=== PATIENT | male | born 1945 | race Caucasian/White ===

== ENCOUNTER 2017-11-12 18:16 | Inpatient (IN) | payer MEDICARE ==
[~2017-11-12] VITALS: Ht 172.7 cm; Wt 99.3 kg
[2017-11-12] MEDS ORDERED: SODIUM CHLORIDE 0.9% 1000ML 1,000 ML IV STA ×2 (18:23→19:36)
[2017-11-12] MEDS ORDERED: ONDANSETRON HCL 4 MG ORAL DISINTEGRATING TAB PO ONE (18:30)
[2017-11-12] MEDS ORDERED: DIATRIZOATE MEGL/DIATRIZOA SOD 30 ML BTL PO ONE (18:30)
[2017-11-12] MEDS: SODIUM CHLORIDE 0.9% 1000ML 1,000 ML IV SCH (20:45)
--- NOTE | 2017-11-12 21:52 | Diagnostic Imaging Report ---
EXAMINATION: CHEST SINGLE (PORTABLE) INDICATION: Abdominal pain, rectal bleeding, evaluate for diverticulitis COMPARISON: None FINDINGS: TUBES and LINES: None. LUNGS: Lungs are not well inflated. Lungs are clear. There is no evidence of pneumonia or pulmonary edema. PLEURA: No pleural effusion or pneumothorax. HEART AND MEDIASTINUM: The cardiomediastinal silhouette is unremarkable. BONES AND SOFT TISSUES: No acute osseous lesion. Soft tissues are unremarkable. UPPER ABDOMEN: No free air under the diaphragm. IMPRESSION: 1. No acute thoracic abnormality. 2. No evidence of free intraperitoneal air. Signed by: Dr. Sean Gongora M.D. on 11/12/2017 9:49 PM
--- NOTE | 2017-11-12 22:00 | Diagnostic Imaging Report ---
EXAM: CT Abdomen and Pelvis WITHOUT contrast INDICATION: Perforated diverticulitis COMPARISON: None. TECHNIQUE: Abdomen and pelvis were scanned utilizing a multidetector helical scanner from the lung base to the pubic symphysis without administration of IV contrast. Absence of intravenous contrast decreases sensitivity for detection of focal lesions and vascular pathology. Coronal and sagittal reformations were obtained. Routine protocol was performed. IV CONTRAST: None. ORAL CONTRAST: Gastrografin RADIATION DOSE: Total DLP: 807.46 mGy*cm Estimated effective dose: (DLP x 0.015 x size factor) mSv COMPLICATIONS: None FINDINGS: LINES and TUBES: None. LOWER THORAX: Moderate cardiomegaly. HEPATOBILIARY: No focal hepatic lesions. No biliary ductal dilation. GALLBLADDER: No radio-opaque stones or sludge. No wall thickening. SPLEEN: No splenomegaly. PANCREAS: No focal masses or ductal dilatation. ADRENALS: No adrenal nodules KIDNEYS/URETERS: No hydronephrosis. No cystic or solid mass lesions. No stones. GI TRACT: Focal, medial, cecal wall thickening with pericolic fat stranding best seen on series 2, image 51 and series 301, image 69, coronal view is suggestive of inflammatory process. These focal diverticulitis is just above the origin of the appendix. There are innumerable diverticula throughout the colon. Appendix is normal. PELVIC ORGANS/BLADDER: Unremarkable. LYMPH NODES: No lymphadenopathy. VESSELS: There is moderate atherosclerotic disease in the aorta and major arterial branches. PERITONEUM / RETROPERITONEUM: No free air or fluid. BONES: There are degenerative changes in the lumbar spine. Bilateral pars defect at L5 with grade 1 anterolisthesis of L5 on S1. SOFT TISSUES: Unremarkable. IMPRESSION: 1. Findings in the cecum are compatible with cecal diverticulitis without free intraperitoneal air. 2. Diffuse diverticulosis of the colon. 3. Mild to moderate enlargement of the heart without evidence of decompensation. Signed by: Dr. Sean Gongora M.D. on 11/12/2017 9:56 PM
[2017-11-12] MEDS ORDERED: LEVOFLOXACIN 500MG/D5W 100ML 100 ML IV STA (23:58)
[2017-11-12] MEDS ORDERED: METRONIDAZOLE 500MG/NS 100ML 100 ML IV STA (23:58)
[2017-11-13 00:59] LABS: HEMATOCRIT 30.7 % (38.2-49.6); HEMOGLOBIN 10.7 g/dL (14.0-18.0)
[2017-11-13] MEDS ORDERED: AMLODIPINE BESY10 MG PO (00:59)
[2017-11-13] MEDS ORDERED: ATORVASTATIN CA20 MG PO (00:59)
[2017-11-13] MEDS ORDERED: ASPIR 8181 MG PO (01:00)
[2017-11-13] MEDS ORDERED: GABAPENTIN300 MG PO (01:00)
[2017-11-13] MEDS ORDERED: FINASTERIDE5 MG PO (01:00)
[2017-11-13] MEDS ORDERED: LISINOPRIL-HCT1 EAC1 PO (01:01)
[2017-11-13] MEDS ORDERED: TAMSULOSIN HCL0.4 MG PO (01:02)
--- OUTSIDE RECORDS SUMMARY | 2017-11-13 01:51 | XMS REPORT ---
Author [facility] Address Unknown Phone Unavailable Care Team Providers Care Paper Cutting Machine Operator Name Role Phone SHOAIB TANG Unavailable Unavailable Problems This patient has no known problems. Allergies, Adverse Reactions, Alerts This patient has no known allergies or adverse reactions. Medications This patient has no known medications. Results Test Description Test Time Test Comments Text Results Atomic Results Result Comments CT ABDOMEN/PELVIS WO 2017-11-12 21:50:[address] [address] Patient Name: JANESSA SUTTON III MR #: [id number] : 1945 Age/Sex: 72/M Req #: [id number] Adm Physician: Ordered by: DAVID LOVING ADDICTION PROFESSIONAL Report #: [id number] Location: ER Room/Bed: ___ Procedure: CT/CT ABDOMEN/PELVIS WO Exam Date: 11/12/17 Exam Time: 2104 REPORT STATUS: Signed EXAM: CT Abdomen and Pelvis WITHOUT contrast INDICATION: Perforated diverticulitis COMPARISON: None. TECHNIQUE: Abdomen and pelvis were scanned utilizing a multidetector helical scanner from the lung base to the pubic symphysis without administration of IV contrast. Absence of intravenous contrast decreases sensitivity for detection of focal lesions and vascular pathology. Coronal and sagittal reformations were obtained. Routine protocol was performed. IV CONTRAST: None. ORAL CONTRAST: Gastrografin RADIATION DOSE: Total DLP: 807.46 mGy*cm Estimated effective dose: (DLP x 0.015 x size factor) mSv COMPLICATIONS: None FINDINGS: LINES and TUBES: None. LOWER THORAX : Moderate cardiomegaly. HEPATOBILIARY: No focal hepatic lesions. No biliary ductal dilation. GALLBLADDER: No radio-opaque stones or sludge. No wall thickening. SPLEEN: No splenomegaly. PANCREAS: No focal masses or ductal dilatation. ADRENALS: No adrenal nodules KIDNEYS/URETERS: No hydronephrosis. No cystic or solid mass lesions. No stones. GI TRACT: Focal, medial, cecal wall thickening with pericolic fat stranding best seen on series 2, image 51 and series 301, image 69, coronal view is suggestive of inflammatory process. These focal diverticulitis is just above the origin of the appendix. There are innumerable diverticula throughout the colon. Appendix is normal. PELVIC ORGANS/BLADDER: Unremarkable. LYMPH NODES: No lymphadenopathy. VESSELS: There is moderate atherosclerotic disease in the aorta and major arterial branches. PERITONEUM / RETROPERITONEUM: No free air or fluid. BONES: There are degenerative changes in the lumbar spine. Bilateral pars defect at L5 with grade 1 anterolisthesis of L5 on S1. SOFT TISSUES: Unremarkable. IMPRESSION: 1. Findings in the cecum are compatible with cecal diverticulitis without free intraperitoneal air. 2. Diffuse diverticulosis of the colon. 3. Mild to moderate enlargement of the heart without evidence of decompensation. Signed by: Dr. Sean Gongora M.D. on 11/12/2017 9:56 PM Dictated By: SEAN IRIZARRY MD 55 Transcribed By: DARRYN on 11/12/172155 COPY TO: DAVID LOVING NP CHEST SINGLE (PORTABLE) 2017-11-12 21:48:00 [place] [address] Patient Name: JANESSA SUTTON III MR #: [id number] : 1945 Age/Sex: 72 /M Req #: [id number] Adm Physician: Ordered by: DAVID LOVING NP Report #: [id number] Location: ER Room/Bed: Procedure: [id number] DX/CHEST SINGLE (PORTABLE) Exam Date: 11/12/17 Exam Time: 2099 REPORT STATUS: Signed EXAMINATION: CHEST SINGLE (PORTABLE) INDICATION: Abdominal pain, rectal bleeding, evaluate for diverticulitis COMPARISON: None FINDINGS: TUBES and LINES: None. LUNGS: Lungs are not well inflated. Lungs are clear. There is no evidence of pneumonia or pulmonary edema. PLEURA: No pleural effusion or pneumothorax. HEART AND MEDIASTINUM: The cardiomediastinal silhouette is unremarkable. BONES AND SOFT TISSUES: No acute osseous lesion. Soft tissues are unremarkable. UPPER ABDOMEN: No free air under the diaphragm. IMPRESSION: 1. No acute thoracic abnormality. 2. No evidence of free intraperitoneal air. Signed by: Dr. Sean Gongora M.D. on 11/12/2017 9:49 PM Dictated By: SEAN IRIZARRY MD 48 COPY TO: DAVID LOVING NP
[2017-11-13 01:55] LABS: BILIRUBIN,URINE NEGATIVE (NEGATIVE); COLOR,URINE YELLOW (YELLOW); KETONES,URINE NEGATIVE (NEGATIVE); LEUKOCYTE ESTERASE ,URINE NEGATIVE (NEGATIVE); NITRITE,URINE NEGATIVE (NEGATIVE); PROTEIN,URINE DIPSTICK NEGATIVE (NEGATIVE); URINE UROBILINOGEN 0.2 mg/dL (0.2 - 1)
[2017-11-13 01:56] LABS: CALCIUM OXALATE CRYSTALS,UR FEW (FEW); EPITHELIAL CELLS,URINE FEW /LPF; WBC,URINE (MAN) 0-5 /HPF (0-5)
[2017-11-13 01:57] LABS: BACTERIA,URINE RARE /HPF; CLARITY,URINE HAZY (CLEAR)
[2017-11-13] MEDS: SODIUM CHLORIDE 0.9% 1000ML 1,000 ML IV SCH ×4 (02:15→22:01)
[2017-11-13] MEDS ORDERED: METRONIDAZOLE 500MG/NS 100ML 100 ML IV SCH (06:00)
[2017-11-13 07:08] LABS: BASOPHILS % 0.3 % (0.0-1.0); EOSINOPHILS # (AUTO) 0.1 (0.0-0.4); EOSINOPHILS % 1.2 % (0.0-6.0); HEMATOCRIT 28.4 % (38.2-49.6); HEMOGLOBIN 9.8 g/dL (14.0-18.0); LYMPHOCYTES # (AUTO) 1.4 (1.0-3.2); LYMPHOCYTES % 13.3 % (18.0-39.1); MEAN CORPUSCULAR HEMOGLOBIN 31.2 pg (28-32); MEAN CORPUSCULAR HGB CONC 324.5 g/dL (31-35); MEAN CORPUSCULAR VOLUME 90.4 fL (81-99); MONOCYTES # (AUTO) 0.9 (0.2-0.8); MONOCYTES % 8.3 % (4.4-11.3); NEUTROPHILS # (AUTO) 7.8 (2.1-6.9); NEUTROPHILS % 75.7 % (38.7-80.0); PLATELET COUNT 122 x10e3/uL (140-360); RED BLOOD COUNT 3.14 x10e6/uL (4.3-5.7); RED CELL DISTRIBUTION WIDTH 14.3 % (11.7-14.4)
[2017-11-13 09:11] LABS: BASOPHILS # (AUTO) 0.1 (0.0-0.1); BASOPHILS % 0.4 % (0.0-1.0); EOSINOPHILS # (AUTO) 0.2 (0.0-0.4); EOSINOPHILS % 1.2 % (0.0-6.0); HEMATOCRIT 35.6 % (38.2-49.6); INR 1.3; LYMPHOCYTES # (AUTO) 1.5 (1.0-3.2); MEAN CORPUSCULAR HEMOGLOBIN 31.4 pg (28-32); MEAN CORPUSCULAR HGB CONC 33.7 g/dL (31-35); MEAN CORPUSCULAR VOLUME 93.2 fL (81-99); MONOCYTES # (AUTO) 0.9 (0.2-0.8); MONOCYTES % 7.4 % (4.4-11.3); NEUTROPHILS # (AUTO) 9.6 (2.1-6.9); NEUTROPHILS % 77.9 % (38.7-80.0); PARTIAL THROMBOPLASTIN TIME 33.4 seconds (23.8-35.5); PLATELET COUNT 178 x10e3/uL (140-360); PROTHROMBIN TIME 15.2 seconds (11.9-14.5); RED BLOOD COUNT 3.82 x10e6/uL (4.3-5.7); RED CELL DISTRIBUTION WIDTH 14.4 % (11.7-14.4)
[2017-11-13 09:12] LABS: ANION GAP 14.9 mmol/L (8-16); CALCIUM 9.5 mg/dL (8.4-10.2); CREATININE, SERUM 2.14 mg/dL (0.72-1.25); POTASSIUM 3.9 mmol/L (3.5-5.1)
[2017-11-13 09:13] LABS: ALBUMIN 3.4 g/dL (3.5-5.0); ALBUMIN/GLOBULIN RATIO 1.2 (0.8-2.0)
[2017-11-13] MEDS ORDERED: PHYTONADIONE 10 MG/ML AMP SQ ONE (11:45)
[2017-11-13] MEDS ORDERED: SODIUM CHLORIDE 0.9% 250ML 250 ML IV ONE (14:30)
[2017-11-13] MEDS ORDERED: FUROSEMIDE INJ 10 MG/ML 2 ML VIAL IV PRN (14:30)
[2017-11-13 15:24] LABS: HEMATOCRIT 29.1 % (38.2-49.6); HEMOGLOBIN 10.1 g/dL (14.0-18.0)
[2017-11-13] MEDS: GABAPENTIN 300 MG CAP PO SCH ×2 (15:25→22:01)
[2017-11-13] MEDS ORDERED: ACETAMINOPHEN 325 MG TAB PO SCH (15:30)
[2017-11-13 15:58] VITALS: BP 137/66
[2017-11-13] MEDS: METRONIDAZOLE 500MG/NS 100ML 100 ML IV SCH ×2 (18:00→22:01)
[2017-11-13 19:30] VITALS: BP 135/71
[2017-11-13 20:00] VITALS: BP 135/71
[2017-11-13] MEDS ORDERED: SODIUM CHLORIDE 0.9% 250ML 250 ML ONE (20:16)
[2017-11-13 21:07] LABS: HEMATOCRIT 29.5 % (38.2-49.6); HEMOGLOBIN 10.2 g/dL (14.0-18.0)
[2017-11-13] MEDS: LEVOFLOXACIN 500MG/D5W 100ML 100 ML IV SCH (23:06)
[2017-11-13 23:53] VITALS: BP 130/63
[2017-11-14] VITALS (13 sets, daily range): BP systolic 98–157; BP diastolic 58–107
[2017-11-14] MEDS ORDERED: PEG (High)/E-LYTE SOLN 4,000 ML BTL PO ONE (00:30)
[2017-11-14 00:49] LABS: BASOPHILS % 0.3 % (0.0-1.0); EOSINOPHILS # (AUTO) 0.2 (0.0-0.4); EOSINOPHILS % 1.7 % (0.0-6.0); HEMATOCRIT 28.7 % (38.2-49.6); HEMOGLOBIN 10.1 g/dL (14.0-18.0); LYMPHOCYTES # (AUTO) 1.1 (1.0-3.2); LYMPHOCYTES % 12.6 % (18.0-39.1); MEAN CORPUSCULAR HEMOGLOBIN 31.5 pg (28-32); MEAN CORPUSCULAR HGB CONC 35.2 g/dL (31-35); MEAN CORPUSCULAR VOLUME 89.4 fL (81-99); MONOCYTES # (AUTO) 0.8 (0.2-0.8); MONOCYTES % 8.6 % (4.4-11.3); NEUTROPHILS # (AUTO) 6.7 (2.1-6.9); PLATELET COUNT 133 x10e3/uL (140-360); RED BLOOD COUNT 3.21 x10e6/uL (4.3-5.7); RED CELL DISTRIBUTION WIDTH 14.2 % (11.7-14.4)
[2017-11-14] MEDS ORDERED: ZOLPIDEM TARTRATE 5 MG TAB PO ONE (04:00)
[2017-11-14 04:44] LABS: BILIRUBIN,URINE NEGATIVE (NEGATIVE); CLARITY,URINE CLEAR (CLEAR); COLOR,URINE YELLOW (YELLOW); KETONES,URINE NEGATIVE (NEGATIVE); LEUKOCYTE ESTERASE ,URINE NEGATIVE (NEGATIVE); NITRITE,URINE NEGATIVE (NEGATIVE); PROTEIN,URINE DIPSTICK NEGATIVE (NEGATIVE); URINE UROBILINOGEN 0.2 mg/dL (0.2 - 1)
[2017-11-14 04:49] LABS: BACTERIA,URINE FEW /HPF; EPITHELIAL CELLS,URINE FEW /LPF; MUCUS,URINE MANY (RARE)
[2017-11-14] MEDS: METRONIDAZOLE 500MG/NS 100ML 100 ML IV SCH ×3 (05:28→21:50)
[2017-11-14 06:27] LABS: BASOPHILS % 0.2 % (0.0-1.0); EOSINOPHILS # (AUTO) 0.1 (0.0-0.4); EOSINOPHILS % 0.5 % (0.0-6.0); HEMATOCRIT 31.9 % (38.2-49.6); LYMPHOCYTES # (AUTO) 1.2 (1.0-3.2); MEAN CORPUSCULAR HEMOGLOBIN 30.8 pg (28-32); MEAN CORPUSCULAR HGB CONC 34.5 g/dL (31-35); MEAN CORPUSCULAR VOLUME 89.4 fL (81-99); MONOCYTES # (AUTO) 0.9 (0.2-0.8); MONOCYTES % 6.7 % (4.4-11.3); NEUTROPHILS # (AUTO) 10.8 (2.1-6.9); NEUTROPHILS % 82.7 % (38.7-80.0); PLATELET COUNT 161 x10e3/uL (140-360); RED BLOOD COUNT 3.57 x10e6/uL (4.3-5.7)
[2017-11-14 06:45] LABS: ANION GAP 16.7 mmol/L (8-16); CALCIUM 9.3 mg/dL (8.4-10.2); CREATININE, SERUM 1.43 mg/dL (0.72-1.25); POTASSIUM 3.7 mmol/L (3.5-5.1)
[2017-11-14] MEDS ORDERED: ZOLPIDEM TARTRATE 5 MG TAB PO PRN (07:30)
[2017-11-14] MEDS: TAMSULOSIN HCL 0.4 MG CAP PO SCH (07:36)
[2017-11-14] MEDS ORDERED: PANTOPRAZOLE 40 MG 10ML VIAL IV SCH (09:00)
[2017-11-14] MEDS: GABAPENTIN 300 MG CAP PO SCH ×3 (10:34→21:50)
[2017-11-14] MEDS: LEVOFLOXACIN 500MG/D5W 100ML 100 ML IV SCH (23:39)
[2017-11-15 00:37] VITALS: BP 112/55
[2017-11-15] MEDS: METRONIDAZOLE 500MG/NS 100ML 100 ML IV SCH (06:53)
[2017-11-15 07:02] LABS: BASOPHILS % 0.4 % (0.0-1.0); EOSINOPHILS # (AUTO) 0.2 (0.0-0.4); EOSINOPHILS % 2.8 % (0.0-6.0); HEMATOCRIT 27.2 % (38.2-49.6); HEMOGLOBIN 9.3 g/dL (14.0-18.0); LYMPHOCYTES % 13.6 % (18.0-39.1); MEAN CORPUSCULAR HEMOGLOBIN 31.2 pg (28-32); MEAN CORPUSCULAR HGB CONC 34.2 g/dL (31-35); MEAN CORPUSCULAR VOLUME 91.3 fL (81-99); MONOCYTES # (AUTO) 0.7 (0.2-0.8); MONOCYTES % 9.6 % (4.4-11.3); NEUTROPHILS # (AUTO) 5.4 (2.1-6.9); NEUTROPHILS % 71.9 % (38.7-80.0); PLATELET COUNT 136 x10e3/uL (140-360); RED BLOOD COUNT 2.98 x10e6/uL (4.3-5.7); RED CELL DISTRIBUTION WIDTH 14.2 % (11.7-14.4)
[2017-11-15 07:29] LABS: ANION GAP 17.3 mmol/L (8-16); CALCIUM 8.6 mg/dL (8.4-10.2); CREATININE, SERUM 1.26 mg/dL (0.72-1.25); POTASSIUM 3.3 mmol/L (3.5-5.1)
[2017-11-15 08:00] VITALS: BP 119/57
[2017-11-15] MEDS: TAMSULOSIN HCL 0.4 MG CAP PO SCH (08:11)
[2017-11-15] MEDS: GABAPENTIN 300 MG CAP PO SCH (08:11)
[2017-11-15 08:52] LABS: BASOPHILS % 0.4 % (0.0-1.0); EOSINOPHILS # (AUTO) 0.3 (0.0-0.4); EOSINOPHILS % 3.3 % (0.0-6.0); HEMATOCRIT 27.7 % (38.2-49.6); HEMOGLOBIN 9.7 g/dL (14.0-18.0); LYMPHOCYTES # (AUTO) 1.1 (1.0-3.2); LYMPHOCYTES % 13.3 % (18.0-39.1); MEAN CORPUSCULAR HEMOGLOBIN 31.6 pg (28-32); MEAN CORPUSCULAR VOLUME 90.2 fL (81-99); MONOCYTES # (AUTO) 0.7 (0.2-0.8); NEUTROPHILS # (AUTO) 5.7 (2.1-6.9); NEUTROPHILS % 72.6 % (38.7-80.0); PLATELET COUNT 134 x10e3/uL (140-360); RED BLOOD COUNT 3.07 x10e6/uL (4.3-5.7); RED CELL DISTRIBUTION WIDTH 14.2 % (11.7-14.4)
[2017-11-15] MEDS ORDERED: POTASSIUM CHLORIDE 20 MEQ TAB CR PO ONE (11:00)
--- NOTE | 2017-11-15 11:12 | Discharge Summary ---
PRIMARY CARE DOCTOR: Dr. Quique Landin with [facility]. FINAL DIAGNOSIS: Lower gastrointestinal bleed due to polypectomy. SECONDARY DIAGNOSES 1. Acute blood loss anemia, status post packed red blood cell times 1. 2. Possible diverticulitis. 3. Acute kidney injury, resolved. 4. Urinary retention, resolved. CONSULTANTS: Dr. Lake, GI. PROCEDURES/PROCEDURES PERFORMED 1. Abdominal computerized tomography. 2. Packed red blood cell transfusion times 1 unit. 3. Fresh frozen plasma transfusion times 1 unit. HISTORY: Per H and P. HOSPITAL COURSE: The patient was admitted. The patient was monitored. He did require 1 unit of packed red blood cells and 1 unit of FFP. Subsequently, his stool is brown now. He is tolerating p.o. Given the fact that there is a possibility of diverticulitis, colonoscopy was not recommended. Therefore, we held off. However, given the location of diverticulitis as this is the same as where they did polypectomy, this is likely more inflammation rather than a true infection. Anyhow, he received IV Levaquin and Flagyl while here, and will complete a course as an outpatient with oral Levaquin and Flagyl. With Flomax, his urinary retention resolved. His creatinine improved as well from 2.14 to 1.26. The patient will follow up with his primary care doctor next week, and then arrange for him to follow up his own GI doctor. The patient was seen and examined today. It took 32 minutes total to discharge this patient. I have answered all the questions from his family at the bedside. CONDITION ON DISCHARGE: Stable. DISCHARGE MEDICATIONS: Please see medication reconciliation form. MED MONTANO M.D. Job#: [id number] RI cc: QUIQUE LANDIN MD
[2017-11-15 12:00] VITALS: BP 133/61
== END 2017-11-15 12:57 | disposition home or self-care (01) | DRG 920 ==
LOC: ER 18:16 → EDBEDREQ 11-13 01:34 → ERHOLD 11-13 01:47 → IMCU 11-13 12:26 → MED/SURG3 11-14 18:26
PROVIDERS: ADMIT Internal Medicine; ATTEND Internal Medicine
PROC: 30233K1 Transfusion of Nonautologous Frozen Plasma into Peripheral Vein, Percutaneous Approach (ICD-10-PCS; principal; 2017-11-13)
PROC: 30233N1 Transfusion of Nonautologous Red Blood Cells into Peripheral Vein, Percutaneous Approach (ICD-10-PCS; 2017-11-13)
DX: K91.840 Postprocedural hemorrhage of a digestive system organ or structure following a digestive system procedure (principal); D62 Acute posthemorrhagic anemia; N17.9 Acute kidney failure, unspecified; K57.90 Diverticulosis of intestine, part unspecified, without perforation or abscess without bleeding; I10 Essential (primary) hypertension; R33.9 Retention of urine, unspecified; N40.0 Benign prostatic hyperplasia without lower urinary tract symptoms; D69.6 Thrombocytopenia, unspecified; G62.9 Polyneuropathy, unspecified; N40.1 Benign prostatic hyperplasia with lower urinary tract symptoms; R33.8 Other retention of urine
CPT/HCPCS: 36415; 71045; 74176; 80048; 80053; 81001; 83735; 84443; 85014; 85018; 85025; 85610; 85730; 86850; 86900; 86920; 87086; 93005; 99284; J1940; J1956; J3430; J7030; J7050; P9016; P9017

== ENCOUNTER 2021-01-22 22:40 | Emergency (ER) | payer MEDICARE ==
[~2021-01-22] VITALS: Ht 172.7 cm; Wt 108.9 kg
[~2021-01-22 22:40] MED LIST: AMLODIPINE BESY10 MG PO; ASPIR 8181 MG PO; ATORVASTATIN CA20 MG PO; FINASTERIDE5 MG PO; GABAPENTIN300 MG PO; LISINOPRIL-HCT1 EAC1 PO; TAMSULOSIN HCL0.4 MG PO
[2021-01-22] MEDS: ONDANSETRON HCL INJ 2MG/ML 2ML 2 MG/ML VIAL IV STA (23:26)
[2021-01-22] MEDS: MORPHINE SULFATE INJ 4 MG/ML INJ 1ML IV STA (23:28)
[2021-01-22] MEDS ORDERED: SODIUM CHLORIDE 0.9% 50ML 50 ML ONE (23:55)
[2021-01-22] MEDS ORDERED: IOPAMIDOL 370 MG/ML 200 ML INFUS..BTL INJ ONE (23:56)
[2021-01-22] MEDS ORDERED: MORPHINE SULFATE INJ 4 MG/ML INJ 1ML ONE (23:59)
[2021-01-22] MEDS ORDERED: ONDANSETRON HCL INJ 2MG/ML 2ML 2 MG/ML VIAL ONE (23:59)
[2021-01-23] MEDS: MORPHINE SULFATE INJ 4 MG/ML INJ 1ML IV STA (00:03)
[2021-01-23] MEDS: ONDANSETRON HCL INJ 2MG/ML 2ML 2 MG/ML VIAL IV STA (00:28)
[2021-01-23] MEDS ORDERED: CIPRO500 MG PO (01:50)
[2021-01-23] MEDS ORDERED: ACETAMINOPHEN-1 EAC3 PO ×2 (01:50→01:56)
[2021-01-23] MEDS ORDERED: ONDANSETRON ODT4 MG PO (01:50)
[2021-01-23 02:05] VITALS: BP 160/66
== END 2021-01-23 02:05 | disposition home or self-care (01) ==
LOC: FSED 23:15
DX: N23 Unspecified renal colic (principal); N28.9 Disorder of kidney and ureter, unspecified
CPT/HCPCS: 74177; 80048; 80076; 85025; 99284; J2270; J2405; Q9967

== ENCOUNTER 2021-01-29 18:15 | Emergency (ER) | payer MEDICARE ==
[~2021-01-29] VITALS: Ht 172.7 cm; Wt 109.0 kg
[~2021-01-29 18:15] MED LIST changes: +ACETAMINOPHEN-1 EAC3 PO; +CIPRO500 MG PO; +ONDANSETRON ODT4 MG PO
[2021-01-29] MEDS ORDERED: VITAMIN D3250 MC1 (19:15)
[2021-01-29] MEDS ORDERED: HYDROCODONE/APAP 5MG-325MG TAB PO ONE (22:15)
[2021-01-29] MEDS ORDERED: CYCLOBENZAPRINE5 MG PO (22:16)
[2021-01-29] MEDS ORDERED: ULTRAM 50MG50 MG PO (22:16)
[2021-01-29] MEDS ORDERED: HYDROCODONE/APAP 5MG-325MG TAB ONE (22:31)
== END 2021-01-29 22:35 | disposition home or self-care (01) ==
LOC: FSED 19:02
DX: M54.2 Cervicalgia (principal); R94.31 Abnormal electrocardiogram [ECG] [EKG]; I10 Essential (primary) hypertension; E78.5 Hyperlipidemia, unspecified; G62.9 Polyneuropathy, unspecified; G89.29 Other chronic pain; M79.673 Pain in unspecified foot; M54.9 Dorsalgia, unspecified; Z79.82 Long term (current) use of aspirin; Z79.899 Other long term (current) drug therapy
CPT/HCPCS: 70450; 72125; 80053; 81003; 85025; 93005; 99284